=== PATIENT | female | born 1965 | race Caucasian/White ===

== ENCOUNTER → 2016-10-02 | Outpatient (CLI) | payer MEDICARE, BC ==
[2016-10-02 17:42] LABS: CH 28.6; CHCM 31.9; HCT 40.6 % (34.0-46.0); HDW 2.77; HGB 12.8 gm/dL (11.4-16.0); MCH 28.5 pg (25.0-35.0); MCHC 31.6 g/dL (31.0-37.0); MCV 90.2 fL (80.0-100.0); Mean Platelet Volume 6.5; RDW 12.8 % (11.5-15.5); WBC 7.3 k/uL (3.8-10.6)
[2016-10-02 17:51] LABS: ALT 35 U/L (9-52); AST 28 U/L (14-36); Alkaline Phosphatase 108 U/L (38-126); Anion Gap 13 mmol/L; Blood Urea Nitrogen 11 mg/dL (7-17); Calcium 9.9 mg/dL (8.4-10.2); Carbon Dioxide 30 mmol/L (22-30); Chloride 100 mmol/L (98-107); Glucose 89 mg/dL (74-99); Non-African American GFR(MDRD) >60 (>60 ml/min/1.73 sqM); Potassium 4.4 mmol/L (3.5-5.1); Sodium 143 mmol/L (137-145); Total Bilirubin 0.4 mg/dL (0.2-1.3); Total Protein 7.6 g/dL (6.3-8.2)
== END | disposition home or self-care (01) ==
LOC: LABWHC1 17:03
PROVIDERS: ATTEND Psychiatry & Neurology Neurology
DX: T42.6X5A Adverse effect of other antiepileptic and sedative-hypnotic drugs, initial encounter (principal)
CPT/HCPCS: 36415; 80053; 85027

== ENCOUNTER → 2017-09-02 | Outpatient (CLI) | payer MEDICARE, BC ==
--- NOTE | 2017-09-06 09:59 | MM ---
Reason for exam: screening (asymptomatic). Last mammogram was performed 1 year and 1 month ago. History: Patient is postmenopausal. Family history of breast cancer in cousin. Cyst aspiration of the right breast, 2013. Physical Findings: A clinical breast exam by your physician is recommended on an annual basis and results should be correlated with mammographic findings. MG 3D Screening Mammo W/Cad Bilateral CC and MLO view(s) were taken. Prior study comparison: August 03, 2016, bilateral MG 3d screening mammo w/cad. July 31, 2015, bilateral MG screening mammo w CAD. The breast tissue is heterogeneously dense. This may lower the sensitivity of mammography. Focal asymmetry right medial CC. Stable nodular right MLO view, probable, present previously. No significant changes when compared with prior studies. ASSESSMENT: Benign, BI-RAD 2 RECOMMENDATION: Routine screening mammogram of both breasts in 1 year.
== END | disposition home or self-care (01) ==
LOC: RADMAMWWP 14:49
PROVIDERS: ATTEND Family Medicine
DX: Z12.31 Encounter for screening mammogram for malignant neoplasm of breast (principal)
CPT/HCPCS: 77063; G0202

== ENCOUNTER → 2017-10-07 | Outpatient (CLI) | payer MEDICARE, BC ==
[2017-10-07 15:54] LABS: HCT 38.9 % (34.0-46.0); HGB 12.3 gm/dL (11.4-16.0); MCH 28.1 pg (25.0-35.0); MCHC 31.7 g/dL (31.0-37.0); MCV 88.6 fL (80.0-100.0); Mean Platelet Volume 7.5; Platelet Count 230 k/uL (150-450); RBC 4.39 m/uL (3.80-5.40); WBC 6.7 k/uL (3.8-10.6)
[2017-10-07 16:05] LABS: ALT 40 U/L (9-52); AST 50 U/L (14-36); Albumin 4.4 g/dL (3.5-5.0); Alkaline Phosphatase 93 U/L (38-126); Anion Gap 12 mmol/L; Blood Urea Nitrogen 13 mg/dL (7-17); Calcium 10.2 mg/dL (8.4-10.2); Carbon Dioxide 29 mmol/L (22-30); Chloride 103 mmol/L (98-107); Glucose 121 mg/dL (74-99); Potassium 4.2 mmol/L (3.5-5.1); Sodium 144 mmol/L (137-145); Total Bilirubin 0.4 mg/dL (0.2-1.3); Total Protein 7.5 g/dL (6.3-8.2)
[2017-10-07 16:18] LABS: T4, Free (Free Thyroxine) 0.97 ng/dL (0.78-2.19)
== END | disposition home or self-care (01) ==
LOC: LABWHC1 14:53
PROVIDERS: ATTEND Psychiatry & Neurology Neurology
DX: T42.6X5S Adverse effect of other antiepileptic and sedative-hypnotic drugs, sequela (principal)
CPT/HCPCS: 36415; 80053; 84439; 84443; 85027

== ENCOUNTER → 2018-01-20 | Outpatient (CLI) | payer MEDICARE, BC ==
--- NOTE | 2018-01-20 09:21 | XR ---
EXAMINATION TYPE: XR chest 2V DATE OF EXAM: 01/20/2018 COMPARISON: NONE HISTORY: Chest pain TECHNIQUE: Frontal and lateral views of the chest are obtained. FINDINGS: There is no focal air space opacity, pleural effusion, or pneumothorax seen. The cardiac silhouette size is within normal limits. The osseous structures are intact. Cholecystectomy clips a re noted within the right upper quadrant. IMPRESSION: No acute cardiopulmonary process.
--- NOTE | 2018-01-20 09:35 | XR ---
EXAMINATION TYPE: XR pelvis complete DATE OF EXAM: 01/20/2018 COMPARISON: NONE HISTORY: Pelvic pain TECHNIQUE: A single AP view of the pelvis is obtained. FINDINGS: There is no acute fracture/dislocation evident in the pelvis. There is mild right and mod erate left femoral acetabular arthropathy with subchondral cysts, acetabular sclerosis and slight med ial joint space narrowing. The overlying soft tissue appears unremarkable. Solitary surgical clip is seen in the midline pelvis. Sacroiliac joints are symmetric with minimal sclerosis. IMPRESSION: 1. No acute fracture or dislocation in the pelvis or 2. 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
== END | disposition home or self-care (01) ==
LOC: RADXRMAIN 08:14
PROVIDERS: ATTEND Physician Assistant
DX: M12.852 Other specific arthropathies, not elsewhere classified, left hip (principal); M12.851 Other specific arthropathies, not elsewhere classified, right hip; R93.7 Abnormal findings on diagnostic imaging of other parts of musculoskeletal system; R07.89 Other chest pain
CPT/HCPCS: 71046

== ENCOUNTER 2018-01-23 22:12 | Emergency (ER) | payer MEDICARE, BC ==
[2018-01-23 22:40] VITALS: TEMP 98.1
[2018-01-23] MEDS ORDERED: KETOROLAC 30 MG/ML 1 ML VIAL IM STA (23:59)
--- NOTE | 2018-01-24 | ED ---
General Adult HPI - General Chief complaint: Recheck/Abnormal Lab/Rx Stated complaint: Nerve Pain L side Time Seen by Provider: 01/23/18 23:34 Source: patient Mode of arrival: ambulatory Limitations: no limitations - History of Present Illness Initial comments: 52-year-old female patient presents to the emergency department today for evaluation of left lower back pain with radiation down the left leg. Patient states that this started approximately a week ago after experiencing a fall onto her left side. Patient states that she has been in to see her primary care physician and was diagnosed with sciatica. States that they wanted her to start taking naproxen however she read the side effects and was nervous about taking the medication. Patient states that she didn't have proper for a couple of days so she was unable to call her doctor to see if she should take this or not. Patient states that the pain has been persistent and on yielding. She states that the pain starts in her left lower back and radiates down the outside of her leg. Patient states that she has had sciatica in the past and this feels similar. She denies any numbness or tingling to her lower extremities. Denies any saddle anesthesia. Denies any loss of bowel or bladder control. Patient denies any headache, neck pain, chest pain, shortness of breath, dizziness, weakness, abdominal pain, nausea, vomiting, or difficulties with bowel movements or urination. - Related Data Allergies Allergy/AdvReac Type Severity Reaction Status Date / Time No Known Allergies Allergy Verified 01/23/18 22:39 Review of Systems ROS Statement: Those systems with pertinent positive or pertinent negative responses have been documented in the HPI. ROS Other: All systems not noted in ROS Statement are negative. Past Medical History Past Medical History: Asthma, CVA/TIA, Hyperlipidemia History of Any Multi-Drug Resistant Organisms: None Reported Past Surgical History: Hysterectomy, Orthopedic Surgery Additional Past Surgical History / Comment(s): left hand/foot Past Psychological History: No Psychological Hx Reported Smoking Status: Never smoker Past Alcohol Use History: None Reported Past Drug Use History: None Reported General Exam Limitations: no limitations General appearance: alert, in no apparent distress, other (This is a pleasant, well-developed, well-nourished adult female patient in no acute distress. Vital signs upon presentation are temperature 98.1F, pulse 92, respirations 19 , blood pressure 139/84, pulse ox 99% on room air.) Eye exam: Present: normal appearance, PERRL, EOMI. Absent: scleral icterus, conjunctival injection, periorbital swelling ENT exam: Present: normal exam, normal oropharynx, mucous membranes moist Neck exam: Present: normal inspection, full ROM. Absent: tenderness, meningismus, lymphadenopathy Respiratory exam: Present: normal lung sounds bilaterally. Absent: respiratory distress, wheezes, rales, rhonchi, stridor Cardiovascular Exam: Present: regular rate, normal rhythm, normal heart sounds. Absent: systolic murmur, diastolic murmur, rubs, gallop, clicks GI/Abdominal exam: Present: soft, normal bowel sounds. Absent: distended, tenderness, guarding, rebound, rigid Extremities exam: Present: normal inspection, full ROM, normal capillary refill , other (Skin to the left lower extremities pink, warm, and dry. Cap refills less than 3 seconds. Post tibial pulses 2+.). Absent: tenderness, pedal edema , joint swelling, calf tenderness Back exam: Present: normal inspection. Absent: vertebral tenderness Neurological exam: Present: alert, oriented X3, CN II-XII intact, other ( Patient has weakness to the left upper and lower extremities related to previous CVA. ) Psychiatric exam: Present: normal affect, normal mood Skin exam: Present: warm, dry, intact, normal color. Absent: rash Course Vital Signs 01/23/18 01/23/18 22:34 23:39 Temperature 98.1 F Pulse Rate 92 88 Respiratory 19 18 Rate Blood Pressure 139/84 154/94 O2 Sat by Pulse 99 98 Oximetry Medical Decision Making - Medical Decision Making 52-year-old female patient presented to the emergency department today for evaluation of left lower back pain with radiation down the left leg. Patient symptoms are consistent with sciatica, she has had this before. Neurologic exam is intact. We will administer an injection of Toradol here in the department. She is instructed to call her primary care physician to discuss use of naproxen tomorrow. Return parameters discussed in detail. She verbalizes understanding and agrees with this plan. Disposition Clinical Impression: Sciatica Disposition: HOME SELF-CARE Condition: Good Instructions: Sciatica (ED) Additional Instructions: Apply warm compresses to the left lower back. Call your primary care physician in the morning to discuss medications. Return here immediately for any new, worsening, or concerning symptoms. Is patient prescribed a controlled substance at d/c from ED?: No Referrals: Alfonzo Jarrett DO [Primary Care Provider] - 1-2 days Time of Disposition: 00:00
[2018-01-24 00:03] VITALS: BP 154/94; PULSE 88; RESP 18
== END 2018-01-24 00:13 | disposition home or self-care (01) ==
LOC: EC 22:12
DX: M54.42 Lumbago with sciatica, left side (principal); Z86.73 Personal history of transient ischemic attack (TIA), and cerebral infarction without residual deficits
CPT/HCPCS: 99283; 96372; J1885

== ENCOUNTER 2018-03-18 17:02 | Emergency (ER) | payer MEDICARE, BC ==
[2018-03-18 17:26] VITALS: BP 133/72; PULSE 109; RESP 18; TEMP 98.2
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
--- NOTE | 2018-03-18 18:08 | XR ---
EXAMINATION TYPE: XR foot complete LT DATE OF EXAM: 03/18/2018 COMPARISON: NONE HISTORY: Pain in the little toe TECHNIQUE: 3 views FINDINGS: Metatarsals appear intact. There is osteopenia. I see no fracture nor dislocation. There is hallux valgus. IMPRESSION: Hallux valgus. No fracture seen. Little toe appears intact.
== END 2018-03-18 18:50 | disposition home or self-care (01) ==
LOC: EC 17:02
DX: M20.12 Hallux valgus (acquired), left foot (principal); J45.909 Unspecified asthma, uncomplicated; E78.5 Hyperlipidemia, unspecified; Z86.73 Personal history of transient ischemic attack (TIA), and cerebral infarction without residual deficits; Z79.82 Long term (current) use of aspirin; Z79.51 Long term (current) use of inhaled steroids; Z79.899 Other long term (current) drug therapy
CPT/HCPCS: 99283

== ENCOUNTER 2018-09-11 14:07 | Emergency (ER) | payer MEDICARE, BC ==
[2018-09-11 14:40] VITALS: RESP 18; TEMP 98
--- NOTE | 2018-09-11 15:06 | ED ---
General Adult HPI - General Chief complaint: ENT Stated complaint: Ear pain Source: patient, RN notes reviewed, old records reviewed Mode of arrival: ambulatory Limitations: no limitations - History of Present Illness Initial comments: 53-year-old female patient with past no history of CVA presents to ED for tinnitus of approximately 1 week. Patient has had tinnitus before in the past in both ears. Previously the tinnitus resolved without intervention. Patient currently complains of tinnitus in her left ear. Patient has not taken anything for the symptoms. Patient denies symptoms including recent falls, head trauma, headache, change in vision. Patient would also like to evaluated. She believes she a developing a stye in her right eye. Patient denies other complaints. Patient denies chest pain, shortness breath, abdominal pain, nausea vomiting diarrhea, fever or chills. Systemic: Pt denies fatigue, myalgia, fever/chills, rash. Pt denies weakness, night sweats, weight loss. Neuro: Pt denies headache, visual disturbances, syncope or pre-syncope. HEENT: Pt denies ocular discharge or irritation, rhinorrhea, pharyngitis or notable lymphadenopathy. Cardiopulmonary: Pt denies chest pain, SOB, heart palpitations, dyspnea on exertion. Abdominal/GI: Pt denies abdominal pain, n/v/d. : Pt denies dysuria, burning w/ urination, frequency/urgency. Denies new onset urinary or bowel incontinence. MSK: Pt denies myalgia, loss of strength or function in extremities. Neuro: Pt denies new onset weakness, paresthesias. - Related Data Home Medications Medication Instructions Recorded Confirmed Albuterol Nebulized [Ventolin 2.5 mg INHALATION RT-QID PRN 03/18/18 03/18/18 Nebulized] Aspirin [Children's Aspirin] 81 mg PO QAM 03/18/18 03/18/18 Budesonide [Pulmicort] 0.5 mg INHALATION RT-BID 03/18/18 03/18/18 Cholecalciferol (Vitamin D3) 2,000 unit PO QAM 03/18/18 03/18/18 [Vitamin D3] Cyclobenzaprine [Flexeril] 10 mg PO HS 03/18/18 03/18/18 Dantrolene [Dantrium] 75 mg PO TID 03/18/18 03/18/18 LORazepam [Ativan] 0.25 mg PO DAILY PRN 03/18/18 03/18/18 Sertraline [Zoloft] 25 mg PO QAM 03/18/18 03/18/18 Sertraline [Zoloft] 50 mg PO HS 03/18/18 03/18/18 Simvastatin [Zocor] 20 mg PO HS 03/18/18 03/18/18 Zafirlukast [Accolate] 20 mg PO BID 03/18/18 03/18/18 lamoTRIgine [LaMICtal] 25 mg PO QAM 03/18/18 03/18/18 Allergies Allergy/AdvReac Type Severity Reaction Status Date / Time No Known Allergies Allergy Verified 03/18/18 17:34 Review of Systems ROS Statement: Those systems with pertinent positive or pertinent negative responses have been documented in the HPI. ROS Other: All systems not noted in ROS Statement are negative. Past Medical History Past Medical History: Asthma, CVA/TIA, Hyperlipidemia, Hypertension, Seizure Disorder History of Any Multi-Drug Resistant Organisms: None Reported Past Surgical History: Hysterectomy, Orthopedic Surgery Additional Past Surgical History / Comment(s): left hand/foot Past Psychological History: No Psychological Hx Reported Smoking Status: Never smoker Past Alcohol Use History: None Reported Past Drug Use History: None Reported General Exam - General Exam Comments Initial Comments: Constitutional: NAD, AOX3, Pt has pleasant affect. HEENT: NC/AT, trachea midline, neck supple, no lymphadenopathy. Posterior pharynx non erythematous, without exudates. External ears appear normal, without discharge. Left TM pallor grade, right TM Noriega, no bulging, erythema or perforation. Mucous membranes moist. Eyes PERRLA, EOM intact, no nystagmus. There is no scleral icterus. Eyes examined, no hordeolum or chalazion. No injection. No pallor noted. Cardiopulmonary: RRR, no murmurs, rubs or gallops, no JVD noted. Lungs CTAB in anterior and posterior solorio. No peripheral edema. Abdominal exam: Abdomen soft and non-distended. Abdomen non-tender to palpation in all 4 quadrants. Bowel sounds active in LLQ. No hepatosplenomegaly. No ecchymosis Neuro: CN II-XII intact. No nuchal rigidity. No focal deficit, no facial droop. MSK: No posterior calf tenderness bilaterally, homans sign negative bilaterally. Posterior tibialis and radial pulse +2 bilaterally. Sensation intact in upper and lower extremities. Full active ROM in upper and lower extremities, 5/5 stregnth. Limitations: no limitations Course Vital Signs 09/11/18 14:38 Temperature 98 F Pulse Rate 99 Respiratory 18 Rate Blood Pressure 125/70 O2 Sat by Pulse 99 Oximetry Medical Decision Making - Medical Decision Making 53-year-old female patient with past no history of CVA presents to ED for tinnitus of approximately 1 week. Patient has had tinnitus before in the past in both ears. Previously the tinnitus resolved without intervention. Patient currently complains of tinnitus in her left ear. Patient has not taken anything for the symptoms. Patient denies symptoms including recent falls, head trauma, headache, change in vision. Physical exam did not display any acute pathology. Laboratory investigations were conducted, CBC, CMP were noncompressive. Findings discussed with the patient. Salicylate level less than 1.0. Patient given 1 L of fluid. Patient's tinnitus resolved in ED. Patient to follow up with primary care physician in one to days. Patient to return to ED if any new signs symptoms develop. Case discussed with Dr. Peña. - Lab Data Result diagrams: 09/11/18 16:02 09/11/18 16:02 Lab Results 09/11/18 09/11/18 Range/Units 16:02 16:02 WBC 7.4 (3.8-10.6) k/uL RBC 4.83 (3.80-5.40) m/uL Hgb 13.0 (11.4-16.0) gm/dL Hct 41.4 (34.0-46.0) % MCV 85.7 (80.0-100.0) fL MCH 26.9 (25.0-35.0) pg MCHC 31.4 (31.0-37.0) g/dL RDW 13.0 (11.5-15.5) % Plt Count 314 (150-450) k/uL Neutrophils % 71 % Lymphocytes % 20 % Monocytes % 3 % Eosinophils % 3 % Basophils % 1 % Neutrophils # 5.2 (1.3-7.7) k/uL Lymphocytes # 1.5 (1.0-4.8) k/uL Monocytes # 0.2 (0-1.0) k/uL Eosinophils # 0.3 (0-0.7) k/uL Basophils # 0.1 (0-0.2) k/uL Sodium 142 (137-145) mmol/L Potassium 3.3 L (3.5-5.1) mmol/L Chloride 97 L (98-107) mmol/L Carbon Dioxide 31 H (22-30) mmol/L Anion Gap 14 mmol/L BUN 14 (7-17) mg/dL Creatinine 0.74 (0.52-1.04) mg/dL Est GFR (CKD-EPI)AfAm >90 (>60 ml/min/1.73 sqM) Est GFR (CKD-EPI)NonAf >90 (>60 ml/min/1.73 sqM) Glucose 137 H (74-99) mg/dL Calcium 10.0 (8.4-10.2) mg/dL Magnesium 2.2 (1.6-2.3) mg/dL Total Bilirubin 0.2 (0.2-1.3) mg/dL AST 29 (14-36) U/L ALT 15 (9-52) U/L Alkaline Phosphatase 125 (38-126) U/L Total Protein 8.7 H (6.3-8.2) g/dL Albumin 4.7 (3.5-5.0) g/dL Salicylates <1.0 mg/dL Disposition Clinical Impression: Tinnitus Disposition: HOME SELF-CARE Condition: Good Instructions: Tinnitus (ED) Additional Instructions: Patient to adhere to previously discussed treatment plan and will take medication(s) as directed. Patient to follow up with PCP in 1-2 days. Patient to return to ED if symptoms do not improve. Is patient prescribed a controlled substance at d/c from ED?: No Referrals: Alfonzo Jarrett DO [Primary Care Provider] - 1-2 days Time of Disposition: 17:26
[2018-09-11] MEDS ORDERED: SODIUM CHLORIDE 0.9% 1,000 ML IV STA (15:36)
[2018-09-11 16:16] LABS: Basophils # (A) 0.1 k/uL (0-0.2); Basophils % (A) 1 %; Eosinophils # (A) 0.3 k/uL (0-0.7); Eosinophils % (A) 3 %; HCT 41.4 % (34.0-46.0); Lymphocytes # (A) 1.5 k/uL (1.0-4.8); Lymphocytes % (A) 20 %; MCH 26.9 pg (25.0-35.0); MCHC 31.4 g/dL (31.0-37.0); MCV 85.7 fL (80.0-100.0); Mean Platelet Volume 6.6; Monocytes # (A) 0.2 k/uL (0-1.0); Monocytes % (A) 3 %; Neutrophils # (A) 5.2 k/uL (1.3-7.7); Neutrophils % (A) 71 %; Platelet Count 314 k/uL (150-450); RBC 4.83 m/uL (3.80-5.40); WBC 7.4 k/uL (3.8-10.6)
[2018-09-11 16:28] LABS: ALT 15 U/L (9-52); AST 29 U/L (14-36); Albumin 4.7 g/dL (3.5-5.0); Alkaline Phosphatase 125 U/L (38-126); Anion Gap 14 mmol/L; Blood Urea Nitrogen 14 mg/dL (7-17); Carbon Dioxide 31 mmol/L (22-30); Chloride 97 mmol/L (98-107); Glucose 137 mg/dL (74-99); Magnesium 2.2 mg/dL (1.6-2.3); Potassium 3.3 mmol/L (3.5-5.1); Salicylate <1.0 mg/dL; Sodium 142 mmol/L (137-145); Total Bilirubin 0.2 mg/dL (0.2-1.3); Total Protein 8.7 g/dL (6.3-8.2)
[2018-09-11 17:34] VITALS: BP 120/79; PULSE 88
== END 2018-09-11 17:33 | disposition home or self-care (01) ==
LOC: EC 14:07
DX: H93.12 Tinnitus, left ear (principal); J45.909 Unspecified asthma, uncomplicated; E78.5 Hyperlipidemia, unspecified; I10 Essential (primary) hypertension; G40.909 Epilepsy, unspecified, not intractable, without status epilepticus; Z79.51 Long term (current) use of inhaled steroids; Z79.82 Long term (current) use of aspirin; Z79.899 Other long term (current) drug therapy
CPT/HCPCS: 36415; 80053; 83520; 83735; 85025; 96360; 99283

== ENCOUNTER → 2018-10-13 | Outpatient (CLI) | payer MEDICARE, BC ==
--- NOTE | 2018-10-16 14:23 | MM ---
Reason for exam: screening (asymptomatic). Last mammogram was performed 1 year and 1 month ago. History: Patient is postmenopausal. Family history of breast cancer in cousin. Cyst aspiration of the right breast, 2013. MG 3D Screening Mammo W/Cad Bilateral CC and MLO view(s) were taken. Prior study comparison: September 02, 2017, bilateral MG 3d screening mammo w/cad. August 03, 2016, bilateral MG 3d screening mammo w/cad. The breast tissue is heterogeneously dense. This may lower the sensitivity of mammography. No significant changes when compared with prior studies. ASSESSMENT: Benign, BI-RAD 2 RECOMMENDATION: Routine screening mammogram of both breasts in 1 year.
== END | disposition home or self-care (01) ==
LOC: RADMAMWWP 14:50
PROVIDERS: ATTEND Family Medicine
DX: Z12.31 Encounter for screening mammogram for malignant neoplasm of breast (principal)
CPT/HCPCS: 77063; 77067

== ENCOUNTER → 2018-10-20 | Outpatient (CLI) | payer MEDICARE, BC ==
[2018-10-20 15:44] LABS: Blood Urea Nitrogen 16 mg/dL (7-17)
--- NOTE | 2018-10-20 20:22 | MR ---
EXAMINATION TYPE: MR brain and iac wo/w con DATE OF EXAM: 10/20/2018 COMPARISON: None HISTORY: Tinnitus left ear CONTRAST: Performed utilizing 7.5 mL intravenous Gadavist gadolinium contrast. TECHNIQUE: Multiplanar, multiecho imaging on a 3.0 Jennifer magnet is performed through the brain. Atte ntion is paid to the internal auditory canals with thin section imaging. Postcontrast imaging is per formed through the internal auditory canals. FINDINGS:Craniovertebral junction is normal. The pituitary is normal. Diffusion-weighted imaging is performed. No suspicious hyperintensity is present to suggest an acute intracranial infarct or acute ischemic area. There appears to be some abnormal signal within the ri ght basal ganglion suggestive for an old lacunar infarct. Ex vacuo effect on the right lateral ventri zachariah is evident. Signal within the brain has scattered areas of hyperintensity which are non-specific but could be rel ated to microvascular ischemic changes. The largest of these appears to lie within the left perivent ricular white matter and measures 0.8 cm in diameter. Optic chiasm is normal. There are normal vascular flow voids within the visualized intracranial cereb ral vasculature. The right A1 segment may be hypoplastic. Thin section imaging is performed through the internal auditory canals and cerebellar pontine angles. No cerebellar pontine angle masses are evident. The internal auditory canals appear normal without expansion or erosion. Postcontrast imaging was performed. No suspicious enhancement is evident within the internal audito ry canals or the included portions of the brain. Mastoid air cells are clear. Portions of the paranasal sinuses visualized are normal. IMPRESSIONS: 1. Normal internal auditory canals. 2. 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 3. Mild periventricular white matter changes.
== END ==
LOC: RADMRIMAIN 15:00
PROVIDERS: ATTEND Family Medicine
DX: H93.12 Tinnitus, left ear (principal); R90.89 Other abnormal findings on diagnostic imaging of central nervous system
CPT/HCPCS: 82565; 84520; 70553; 36415; A9585

== ENCOUNTER 2019-02-16 15:16 | Emergency (ER) | payer MEDICARE, BC ==
[2019-02-16 15:38] VITALS: RESP 18; TEMP 99.2
--- NOTE | 2019-02-16 16:40 | ED ---
General Adult HPI - General Chief complaint: Dizziness Stated complaint: Dizziness, facial numbness Time Seen by Provider: 02/16/19 16:01 Source: patient Mode of arrival: wheelchair Limitations: no limitations - History of Present Illness Initial comments: Dictation was produced using [employer] dictation software. please excuse any gramma tical, word or spelling errors. Chief Complaint: Patient is a 54-year-old female past medical history asthma, TIA, dyslipidemia presents with dizziness. History of Present Illness: Patient is a 54-year-old female she presents with dizziness. She states she has patient has a history of stress-induced dizziness. States that the last time she had this was several months ago. Patient able to ambulate without any difficulties. No neuro deficits to the arms or legs. Patient has slight mental delay. She resides at an assisted living facility. She called her primary care's physician's office and spoke [employer] nurse and campus receptionist directed her to the emergency department. She has no other complaints at this time. Denies any sensation of the room spinning. Patient has seen landing gear mechanic. She currently uses eardrops for years for unspecified reason. The ROS documented in this emergency department record has been reviewed and confirmed by me. Those systems with pertinent positive or negative responses have been documented in the HPI. All other systems are other negative and/or noncontributory. PHYSICAL EXAM: General Impression: Alert and oriented x3, not in acute distress HEENT: Normocephalic atraumatic, extra-ocular movements intact, pupils equal and reactive to light bilaterally, mucous membranes moist, impacted cerumen to the right external auditory canal. Cardiovascular: Heart regular rate and rhythm, S1&S2 audible, no murmurs, rubs or gallops Chest: Lungs clear to auscultation bilaterally, no rhonchi, no wheeze, no rales Abdomen: Bowel sounds present, abdomen soft, non-tender, non-distended, no organomegaly Musculoskeletal: Pulses present and equal in all extremities, no peripheral edema Motor: no focal deficits noted Neurological: CN II-XII grossly intact, no focal motor or sensory deficits noted, no gait ataxia Skin: Intact with no visualized rashes Psych: Normal affect and mood ED course: 54-year-old female presents with clinical presentation consistent with dizziness secondary to impacted ear cerumen. Vital signs upon arrival shows heart rate of 104, rest of vital signs within acceptable limits. Patient has benign physical examination otherwise. Patient is clinically well- appearing. Right ear was irrigated. With removal of wax. Reevaluation of external auditory canal shows some residual wax however static membrane appears well. Patient reports improvement of symptoms. Patient clear for discharge. Told not to excessively use Q-tips because of pushes earwax into the deeper ear canal. Patient told to follow up with your nose and throat specialist. She is told to take [id number] earwax drops. Patient understandable agreeable to disposition.. Patient clear for discharge. EKG interpretation: Ventricular rate 53, normal sinus rhythm, OH interval 132, care is 94, QTC 477. No OH prolongation, no QTC prolongation, no ST or T-wave changes noted. . Overall, this EKG is unremarkable - Related Data Home Medications Medication Instructions Recorded Confirmed Albuterol Nebulized [Ventolin 2.5 mg INHALATION RT-QID PRN 03/18/18 02/16/19 Nebulized] Aspirin [Children's Aspirin] 81 mg PO QAM 03/18/18 02/16/19 Budesonide [Pulmicort] 0.5 mg INHALATION RT-BID 03/18/18 02/16/19 Cholecalciferol (Vitamin D3) 2,000 unit PO QAM 03/18/18 02/16/19 [Vitamin D3] Cyclobenzaprine [Flexeril] 10 mg PO HS 03/18/18 02/16/19 Dantrolene [Dantrium] 75 mg PO TID 03/18/18 02/16/19 LORazepam [Ativan] 0.25 mg PO DAILY PRN 03/18/18 02/16/19 Sertraline [Zoloft] 25 mg PO QAM 03/18/18 02/16/19 Sertraline [Zoloft] 50 mg PO HS 03/18/18 02/16/19 Simvastatin [Zocor] 20 mg PO HS 03/18/18 02/16/19 Zafirlukast [Accolate] 20 mg PO BID 03/18/18 02/16/19 lamoTRIgine [LaMICtal] 25 mg PO QAM 03/18/18 02/16/19 Hydrochlorothiazide [Hydrodiuril] 25 mg PO DAILY 02/16/19 02/16/19 Allergies Allergy/AdvReac Type Severity Reaction Status Date / Time No Known Allergies Allergy Verified 02/16/19 16:01 Review of Systems ROS Statement: Those systems with pertinent positive or pertinent negative responses have been documented in the HPI. ROS Other: All systems not noted in ROS Statement are negative. Past Medical History Past Medical History: Asthma, CVA/TIA, Hyperlipidemia, Hypertension, Seizure Disorder History of Any Multi-Drug Resistant Organisms: None Reported Past Surgical History: Hysterectomy, Orthopedic Surgery Additional Past Surgical History / Comment(s): left hand/foot Past Psychological History: No Psychological Hx Reported Smoking Status: Never smoker Past Alcohol Use History: None Reported Past Drug Use History: None Reported General Exam Limitations: no limitations Course Vital Signs 02/16/19 02/16/19 15:34 18:10 Temperature 99.2 F Pulse Rate 104 H 99 Respiratory 18 18 Rate Blood Pressure 123/75 136/78 O2 Sat by Pulse 100 99 Oximetry Disposition Clinical Impression: Impacted cerumen, Dizziness Disposition: HOME SELF-CARE Condition: Good Instructions (If sedation given, give patient instructions): Dizziness (ED) Is patient prescribed a controlled substance at d/c from ED?: No Referrals: Alfonzo Jarrett DO [Primary Care Provider] - 1-2 days Time of Disposition: 18:26
[2019-02-16 18:11] VITALS: BP 136/78; PULSE 99
== END 2019-02-16 18:35 | disposition home or self-care (01) ==
LOC: EC 15:16
DX: H61.21 Impacted cerumen, right ear (principal); R42 Dizziness and giddiness; J45.909 Unspecified asthma, uncomplicated; E78.5 Hyperlipidemia, unspecified; I10 Essential (primary) hypertension; G40.909 Epilepsy, unspecified, not intractable, without status epilepticus; Z79.82 Long term (current) use of aspirin; Z79.899 Other long term (current) drug therapy; Z86.73 Personal history of transient ischemic attack (TIA), and cerebral infarction without residual deficits
CPT/HCPCS: 69209; 93005; 99284

== ENCOUNTER → 2019-08-29 | Outpatient (CLI) | payer MEDICARE, BC ==
[2019-08-29 18:07] LABS: Basophils % (A) 0 %; Eosinophils # (A) 0.3 k/uL (0-0.7); Eosinophils % (A) 5 %; HCT 35.1 % (34.0-46.0); HGB 11.5 gm/dL (11.4-16.0); Lymphocytes # (A) 1.6 k/uL (1.0-4.8); Lymphocytes % (A) 22 %; MCH 29.6 pg (25.0-35.0); MCHC 32.7 g/dL (31.0-37.0); MCV 90.7 fL (80.0-100.0); Mean Platelet Volume 7.6; Monocytes # (A) 0.4 k/uL (0-1.0); Monocytes % (A) 5 %; Neutrophils # (A) 4.7 k/uL (1.3-7.7); Neutrophils % (A) 66 %; Platelet Count 271 k/uL (150-450); RBC 3.87 m/uL (3.80-5.40); RDW 12.4 % (11.5-15.5); WBC 7.2 k/uL (3.8-10.6)
[2019-08-30 01:36] LABS: African American GFR (CKD) 97.6 (60.0-200.0); Albumin 4.7 g/dL (3.80-4.90); Albumin/Globulin Ratio 1.88 (1.60-3.17); Anion Gap 11.1 mmol/L (4.00-12.00); BUN/Creat Ratio 31.25 Ratio (12.00-20.00); Calcium 9.7 mg/dL (8.7-10.3); Carbon Dioxide 25.9 mmol/L (21.6-31.8); Globulin 2.5 g/dL (1.6-3.3); Non-African American GFR(CKD) 84.2 (60.0-200.0); Potassium 4.6 mmol/L (3.5-5.5); Total Bilirubin 0.2 mg/dL (0.3-1.2); Total Protein 7.2 g/dL (6.2-8.2)
== END | disposition home or self-care (01) ==
LOC: LABWHC1 16:59
PROVIDERS: ATTEND Psychiatry & Neurology Neurology
DX: G40.109 Localization-related (focal) (partial) symptomatic epilepsy and epileptic syndromes with simple partial seizures, not intractable, without status epilepticus (principal); Z51.81 Encounter for therapeutic drug level monitoring
CPT/HCPCS: 36415; 80053; 85025

== ENCOUNTER 2019-09-13 20:50 | Emergency (ER) | payer MEDICARE, BC ==
[2019-09-13 21:07] VITALS: BP 162/97; PULSE 102; RESP 20; TEMP 97.8
--- NOTE | 2019-09-13 21:14 | ED ---
Upper Extremity HPI - General Chief Complaint: Extremity Injury, Upper Stated Complaint: Fall Time Seen by Provider: 09/13/19 21:10 Source: patient, family Mode of arrival: ambulatory Limitations: no limitations - History of Present Illness Initial Comments: Gogo is a 54-year-old female with past medical history of CVA in the past resulting in some left-sided weakness and walker dependence. Patient presents the ER today for reevaluation of right wrist pain after a fall yesterday. Patient states that yesterday she was attempting to get out of a cab when she fell on outstretched hand. She was seen and evaluated at an outside hospital where x-rays were obtained and she was advised that she had a sprain with no fracture. She was given an Danial wrap and discharged home. Patient reports that due to the disability in her left hand from previous stroke she was unable to adjust her Danial wrap and she noted today that her fingers became swollen and blue she also reports increasing pain so she returned the ER for reevaluation. Patient denies any new injuries today. - Related Data Home Medications Medication Instructions Recorded Confirmed Albuterol Nebulized [Ventolin 2.5 mg INHALATION RT-QID PRN 03/18/18 02/16/19 Nebulized] Aspirin [Children's Aspirin] 81 mg PO QAM 03/18/18 02/16/19 Budesonide [Pulmicort] 0.5 mg INHALATION RT-BID 03/18/18 02/16/19 Cholecalciferol (Vitamin D3) 2,000 unit PO QAM 03/18/18 02/16/19 [Vitamin D3] Cyclobenzaprine [Flexeril] 10 mg PO HS 03/18/18 02/16/19 Dantrolene [Dantrium] 75 mg PO TID 03/18/18 02/16/19 LORazepam [Ativan] 0.25 mg PO DAILY PRN 03/18/18 02/16/19 Sertraline [Zoloft] 25 mg PO QAM 03/18/18 02/16/19 Sertraline [Zoloft] 50 mg PO HS 03/18/18 02/16/19 Simvastatin [Zocor] 20 mg PO HS 03/18/18 02/16/19 Zafirlukast [Accolate] 20 mg PO BID 03/18/18 02/16/19 lamoTRIgine [LaMICtal] 25 mg PO QAM 03/18/18 02/16/19 Hydrochlorothiazide [Hydrodiuril] 25 mg PO DAILY 02/16/19 02/16/19 Allergies Allergy/AdvReac Type Severity Reaction Status Date / Time No Known Allergies Allergy Verified 09/13/19 21:07 Review of Systems ROS Statement: Those systems with pertinent positive or pertinent negative responses have been documented in the HPI. ROS Other: All systems not noted in ROS Statement are negative. Past Medical History Past Medical History: Asthma, CVA/TIA, Hyperlipidemia, Hypertension, Seizure Disorder History of Any Multi-Drug Resistant Organisms: None Reported Past Surgical History: Hysterectomy, Orthopedic Surgery Additional Past Surgical History / Comment(s): left hand/foot Past Psychological History: No Psychological Hx Reported Smoking Status: Never smoker Past Alcohol Use History: None Reported Past Drug Use History: None Reported General Exam - General Exam Comments Initial Comments: Physical Exam GENERAL: Patient is well-developed and well-nourished. Patient is nontoxic and well-hydrated and is in no distress. HENT: Normocephalic, Atraumatic. EYES: PERRL, EOMI PULMONARY: Unlabored respirations. CARDIOVASCULAR: RRR Warm and well perfused extremities ABDOMEN: Non-distended SKIN: No rashes or bruising : Deferred NEUROLOGIC: Alert and oriented Normal speech Normal gait MUSCULOSKELETAL: Swelling of the right hand, bruising noted at the base of the fingers and thumb Snuffbox tenderness noted PSYCHIATRIC: No SI/HI Limitations: no limitations Course Vital Signs 09/13/19 21:03 Temperature 97.8 F Pulse Rate 102 H Respiratory 20 Rate Blood Pressure 162/97 O2 Sat by Pulse 100 Oximetry Procedures - Orthopedic Splinting/Casting Injury #1 Side: right Upper Extremity Injury Location: wrist Upper Extremity Immobilizer: thumb spica Medical Decision Making - Medical Decision Making Patient was seen and evaluated history is obtained from the patient next and physical exam revealed a swollen hand with bruising, the very tight Danial wrap was removed and repeat x-rays were obtained which again revealed no acute fracture. Given patient's symptoms and disability the patient was placed in a thumb spica splint to allow her to support the injury while still using her walker. Patient has home nursing who visits on Wednesday and . Patient states they will be able to change her splint help keep her hand pain. Patient is to follow up with her primary care provider who she is shannan scheduled to see. Eyes patient that she has persistent pain after 2 weeks to request her primary care provider repeat imaging and referral to orthopedics. Disposition Clinical Impression: Wrist pain, right Disposition: HOME SELF-CARE Condition: Stable Instructions (If sedation given, give patient instructions): Hand Sprain (ED) Is patient prescribed a controlled substance at d/c from ED?: No Referrals: Alfonzo Jarrett DO [Primary Care Provider] - 1-2 days
--- NOTE | 2019-09-13 21:42 | XR ---
EXAMINATION TYPE: XR wrist complete RT DATE OF EXAM: 09/13/2019 COMPARISON: NONE HISTORY: Wrist pain. Fell out of a car TECHNIQUE: 4 views FINDINGS: Carpal bones are intact. Joint spaces are fairly normal. I see no fracture nor dislocation. Scaphoid is intact. Metacarpals are intact. IMPRESSION: Negative right wrist exam.
== END 2019-09-13 22:10 | disposition home or self-care (01) ==
LOC: EC 20:50
DX: M25.531 Pain in right wrist (principal); S60.221A Contusion of right hand, initial encounter; I69.354 Hemiplegia and hemiparesis following cerebral infarction affecting left non-dominant side; J45.909 Unspecified asthma, uncomplicated; E78.5 Hyperlipidemia, unspecified; I10 Essential (primary) hypertension; G40.909 Epilepsy, unspecified, not intractable, without status epilepticus; Z79.51 Long term (current) use of inhaled steroids; Z79.82 Long term (current) use of aspirin; Z79.899 Other long term (current) drug therapy; V48.9XXA Unspecified car occupant injured in noncollision transport accident in traffic accident, initial encounter; Y93.89 Activity, other specified
CPT/HCPCS: 29125; 99283

== ENCOUNTER → 2020-10-04 | Outpatient (CLI) | payer MEDICARE, BC ==
--- NOTE | 2020-10-08 10:35 | MM ---
Reason for exam: screening (asymptomatic). Last mammogram was performed 2 years ago. History: Patient is postmenopausal. Family history of breast cancer in cousin. Cyst aspiration of the right breast, 2013. Physical Findings: A clinical breast exam by your physician is recommended on an annual basis and results should be correlated with mammographic findings. MG 3D Screening Mammo W/Cad Bilateral CC and MLO view(s) were taken. XCCL view(s) were taken of the right breast. Prior study comparison: October 13, 2018, bilateral MG 3d screening mammo w/cad. September 02, 2017, bilateral MG 3d screening mammo w/cad. The breast tissue is heterogeneously dense. This may lower the sensitivity of mammography. No significant changes when compared with prior studies. ASSESSMENT: Benign, BI-RAD 2 RECOMMENDATION: Routine screening mammogram of both breasts in 1 year.
== END | disposition home or self-care (01) ==
LOC: RADMAMWWP 13:06
PROVIDERS: ATTEND Family Medicine
DX: Z12.31 Encounter for screening mammogram for malignant neoplasm of breast (principal)
CPT/HCPCS: 77063; 77067

== ENCOUNTER → 2020-10-10 | Outpatient (CLI) | payer MEDICARE, BC | END | disposition home or self-care (01) | LOC: LABWHC1 08:49 | PROVIDERS: ATTEND Family Medicine | DX: Z20.822 Contact with and (suspected) exposure to COVID-19 (principal) | CPT/HCPCS: U0003; C9803; U0005 ==

== ENCOUNTER → 2021-08-27 | Outpatient (CLI) | payer MEDICARE, BC ==
--- NOTE | 2021-08-28 06:51 | XR ---
EXAMINATION TYPE: XR shoulder complete LT DATE OF EXAM: 08/27/2021 CLINICAL HISTORY: pain COMPARISON: NONE TECHNIQUE: Three views of the left shoulder are obtained. FINDINGS: There is no acute fracture/dislocation evident. The acromioclavicular and glenohumeral toñito int spaces appear moderately narrowed. The visualized ribs are intact and unremarkable. IMPRESSION: 1. There is no acute fracture or dislocation. ICD 10 NO FRACTURE, INITIAL EVALUATION
== END | disposition home or self-care (01) ==
LOC: RADXRMAIN 16:16
PROVIDERS: ATTEND Family Medicine
DX: M25.512 Pain in left shoulder (principal)

== ENCOUNTER → 2022-02-23 | Outpatient (CLI) | payer MEDICARE, BC | END | disposition home or self-care (01) | LOC: LABWHC1 16:45 | PROVIDERS: ATTEND Otolaryngology | DX: J30.89 Other allergic rhinitis (principal) | CPT/HCPCS: 36415 ==

== ENCOUNTER → 2022-12-15 | Outpatient (CLI) | payer MEDICARE, BC ==
--- NOTE | 2022-12-16 12:13 | CT ---
EXAMINATION TYPE: CT abdomen pelvis wo con CT DLP: 869 mGycm, Automated exposure control for dose reduction was used. DATE OF EXAM: 12/15/2022 5:28 PM COMPARISON: None CLINICAL INDICATION:Female, 57 years old with history of R10.33 PERIUMBILICAL PAIN; periumbilical jake n and yeast infection in umbilical button TECHNIQUE: Axial CT of the abdomen and pelvis. Sagittal and coronal reformats were created on a [id number] workstation. Contrast used: None Oral contrast used: with Oral Contrast FINDINGS: LOWER CHEST: Unremarkable ABDOMEN LIVER: Unremarkable GALLBLADDER AND BILE DUCTS: The gallbladder is surgically absent. PANCREAS: Unremarkable. SPLEEN: Unremarkable. ADRENAL GLANDS: Unremarkable. KIDNEYS AND URETERS: No evidence of hydronephrosis or renal calculus. The ureters are unremarkable. PELVIS BLADDER: Unremarkable REPRODUCTIVE: Unremarkable. ABDOMEN & PELVIS STOMACH AND BOWEL: No evidence of bowel obstruction. The appendix is not definitively visualized. PERITONEUM/RETROPERITONEUM: No evidence of pneumoperitoneum or free fluid. VASCULATURE: Mild atherosclerotic calcifications are present throughout the abdominal aorta and its b ranches. No evidence of aortic aneurysm. MUSCULOSKELETAL: No acute osseous abnormalities. Mild disc degeneration changes are present throughou t the thoracolumbar spine. LYMPH NODES: No gross evidence for lymphadenopathy. SOFT TISSUE/ABDOMINAL WALL: Fat-containing umbilical hernia. Ventral wall hernia just below the umbil icus containing fat. No organizing fluid collections in the subcutaneous tissue around the umbilicus or evidence for inflammation. IMPRESSION: No acute abdominal process. No evidence for abdominal wall hernia. The appendix is not visualized. Small fat-containing umbilical and ventral wall hernias without evidence for organizing fluid collect ion.
== END | disposition home or self-care (01) ==
LOC: RADCTMAIN 15:06
PROVIDERS: ATTEND Family Medicine
DX: K42.9 Umbilical hernia without obstruction or gangrene (principal); K44.9 Diaphragmatic hernia without obstruction or gangrene
CPT/HCPCS: 74176

== ENCOUNTER 2022-12-19 11:11 | Emergency (ER) | payer MEDICARE, BC ==
[2022-12-19] MEDS ORDERED: IBUPROFEN 600 MG TAB PO STA (11:15)
[2022-12-19] MEDS ORDERED: ACETAMINOPHEN TAB 500 MG TAB PO STA (11:15)
--- NOTE | 2022-12-19 11:21 | ED ---
General Adult HPI - General Stated complaint: Covid Time Seen by Provider: 12/19/22 11:11 Source: patient, RN notes reviewed, old records reviewed - History of Present Illness Initial comments: This a 57-year-old female who presents emergency department from an urgent care. Patient was at the urgent care because she states she started getting the chills last night and her daughter ankle which she wanted to be checked out. Khadar mateo was positive for cold at the urgent care and they sent her in because she was tachycardic. Patient had a fever for 101 at the urgent care but they did not give her any Tylenol or Motrin. Patient denies any sore throat or cough. Patient denies any difficulty breathing or chest pain. Patient denies any nausea vomiting or diarrhea. Patient states she also had some exposure to strep throat. - Related Data Home Medications Medication Instructions Recorded Confirmed Albuterol Nebulized [Ventolin 2.5 mg INHALATION RT-QID PRN 03/18/18 02/16/19 Nebulized] Aspirin [Children's Aspirin] 81 mg PO QAM 03/18/18 02/16/19 Budesonide [Pulmicort] 0.5 mg INHALATION RT-BID 03/18/18 02/16/19 Cholecalciferol (Vitamin D3) 2,000 unit PO QAM 03/18/18 02/16/19 [Vitamin D3] Cyclobenzaprine [Flexeril] 10 mg PO HS 03/18/18 02/16/19 Dantrolene [Dantrium] 75 mg PO TID 03/18/18 02/16/19 LORazepam [Ativan] 0.25 mg PO DAILY PRN 03/18/18 02/16/19 Sertraline [Zoloft] 25 mg PO QAM 03/18/18 02/16/19 Sertraline [Zoloft] 50 mg PO HS 03/18/18 02/16/19 Simvastatin [Zocor] 20 mg PO HS 03/18/18 02/16/19 Zafirlukast [Accolate] 20 mg PO BID 03/18/18 02/16/19 lamoTRIgine [LaMICtal] 25 mg PO QAM 03/18/18 02/16/19 hydroCHLOROthiazide [Hydrodiuril] 25 mg PO DAILY 02/16/19 02/16/19 Allergies Allergy/AdvReac Type Severity Reaction Status Date / Time No Known Allergies Allergy Verified 09/13/19 21:07 Review of Systems ROS Statement: Those systems with pertinent positive or pertinent negative responses have been documented in the HPI. ROS Other: All systems not noted in ROS Statement are negative. Past Medical History Past Medical History: Asthma, CVA/TIA, Hyperlipidemia, Hypertension, Seizure Disorder History of Any Multi-Drug Resistant Organisms: None Reported Past Surgical History: Hysterectomy, Orthopedic Surgery Additional Past Surgical History / Comment(s): left hand/foot Past Psychological History: No Psychological Hx Reported Past Alcohol Use History: None Reported Past Drug Use History: None Reported General Exam - General Exam Comments Initial Comments: GENERAL: Patient is well-developed and well-nourished. Patient is nontoxic and well- hydrated and is in no acute distress. ENT: Neck is soft and supple. No significant lymphadenopathy is noted. Oropharynx is clear. Moist mucous membranes. Neck has full range of motion without eliciting any pain. EYES: The sclera were anicteric and conjunctiva were pink and moist. Extraocular movements were intact and pupils were equal round and reactive to light. Eyelids were unremarkable. PULMONARY: Unlabored respirations. Good breath sounds bilaterally. No audible rales rhonchi or wheezing was noted. CARDIOVASCULAR: There is a regular rate and rhythm without any murmurs gallops or rubs. ABDOMEN: Soft and nontender with normal bowel sounds. SKIN: Skin is clear with no lesions or rashes and otherwise unremarkable. NEUROLOGIC: Patient is alert and oriented x3. Cranial nerves II through XII are grossly intact. Motor and sensory are also intact. Normal speech, volume and content. Symmetrical smile. MUSCULOSKELETAL: Normal extremities with adequate strength and full range of motion. LYMPHATICS: No significant lymphadenopathy is noted PSYCHIATRIC: Normal psychiatric evaluation. Course Vital Signs 12/19/22 12/19/22 12/19/22 11:14 12:18 12:47 Temperature 102.3 F H 100.8 F H Pulse Rate 136 H 123 H 126 H Respiratory 20 20 Rate Blood Pressure 130/90 O2 Sat by Pulse 99 96 96 Oximetry 12/19/22 12/19/22 13:16 14:00 Temperature 100.3 F H 99.8 F H Pulse Rate 118 H 113 H Respiratory 18 Rate Blood Pressure 111/62 O2 Sat by Pulse 95 Oximetry Medical Decision Making - Medical Decision Making EKG was interpreted by myself. EKG shows sinus tachycardia at 132 bpm CA interval 238 QRS is 95 QT interval 3:30 QTC is 391. Patient's EKG shows no ST segment elevation or depression. Was pt. sent in by a medical professional or institution (, [employer], HEALTHCARE INSURANCE SALES AGENT, urgent care, hospital, or jail...) When possible be specific @ -Patient was sent in from urgent care Did you speak to anyone other than the patient for history (EMS, parent, family, police, friend...)? What history was obtained from this source @ -No Did you review nursing and triage notes (agree or disagree)? Why? @ -I reviewed and agree with nursing and triage notes Were old charts reviewed (outside hosp., previous admission, EMS record, old EKG, old radiological studies, urgent care reports/EKG's, jail records)? Report findings @ -No old charts were reviewed Differential Diagnosis (chest pain, altered mental status, abdominal pain women, abdominal pain men, vaginal bleeding, weakness, fever, dyspnea, syncope, headache, dizziness, GI bleed, back pain, seizure, CVA, palpatations, mental health, musculoskeletal)? @ -Differential Fever: Pneumonia, viral URI, endocarditis, myocarditis, pericarditis, otitis, sinusitis, peritonsillar Abscess, retropharyngeal Abscess, epiglottitis, peritonitis, appendicitis, Mikaela cystitis, diverticulitis, hepatitis, colitis, UTI, PID, TOA, pyelonephritis, prostatitis, epididymitis, meningitis, encephalitis, pulmonary embolism, CVA, thyroid storm, pancreatitis, adrenal crisis, cavernous sinus thrombosis, this is not meant to be an all-inclusive list. EKG interpreted by me (3pts min.). @ -As above X-rays interpreted by me (1pt min.). @ -Chest x-ray was interpreted by myself showed no acute abnormality. CT interpreted by me (1pt min.). @ -None done U/S interpreted by me (1pt. min.). @ -None done What testing was considered but not performed or refused? (CT, X-rays, U/S, labs)? Why? @ -None What meds were considered but not given or refused? Why? @ -None Did you discuss the management of the patient with other professionals (professionals i.e. , [employer], HEALTHCARE INSURANCE SALES AGENT, lab, RT, psych nurse, secondary social studies teacher, meat pumper, teacher, head correction officer, onsite case manager)? Give summary @ -No Was smoking cessation discussed for >3mins.? @ -No Was critical care preformed (if so, how long)? @ -No Were there social determinants of health that impacted care today? How? (Homelessness, low income, unemployed, alcoholism, drug addiction, transportation, low edu. Level, literacy, decrease access to med. care, snf, rehab)? @ -No Was there de-escalation of care discussed even if they declined (Discuss DNR or withdrawal of care, Hospice)? DNR status @ -No What co-morbidities impacted this encounter? (DM, HTN, Smoking, COPD, CAD, Cancer, CVA, ARF, Chemo, Hep., AIDS, mental health diagnosis, sleep apnea, morbid obesity)? @ -None Was patient admitted / discharged? Hospital course, mention meds given and route, prescriptions, significant lab abnormalities, going to OR and other pertinent info. @ -Patient was transferred to us from the urgent care because of tachycardia. Patient came here he had a fever of 102.5 I gave the patient Tylenol Motrin and the rate came down about 110 but she states she is out of her Ativan believe she is anxious. She was given Ativan as well. Patient denies any symptoms other than having the chills earlier and now that her fever started she no longer has the chills and she is asymptomatic. Patient oxygenates in the high 90 percentile Undiagnosed new problem with uncertain prognosis? @ -No Drug Therapy requiring intensive monitoring for toxicity (Heparin, Nitro, Insulin, Cardizem)? @ -No Were any procedures done? @ -No Diagnosis/symptom? @ -COVID-19 Acute, or Chronic, or Acute on Chronic? @ -Acute Uncomplicated (without systemic symptoms) or Complicated (systemic symptoms)? @ -Uncomplicated Side effects of treatment? @ -No Exacerbation, Progression, or Severe Exacerbation? @ -No Poses a threat to life or bodily function? How? (Chest pain, [place], [place], pneumonia, PE, COPD, DKA, ARF, appy, cholecystitis, CVA, Diverticulitis, Homicidal, Suicidal, threat to staff... and all critical care pts) @ -No Diagnosis/symptom? @ -Tachycardia Acute, or Chronic, or Acute on Chronic? @ -Acute Uncomplicated (without systemic symptoms) or Complicated (systemic symptoms)? @ -Uncomplicated Side effects of treatment? @ -none Exacerbation, Progression, or Severe Exacerbation] @ -no Poses a threat to life or bodily function? @ -no Diagnosis/symptom? @ -Anxiety Acute, or Chronic, or Acute on Chronic? @ -Acute Uncomplicated (without systemic symptoms) or Complicated (systemic symptoms)? @ -default Side effects of treatment? @ -none Exacerbation, Progression, or Severe Exacerbation] @ -no Poses a threat to life or bodily function? @ -no - Lab Data Lab Results 12/19/22 Range/Units 11:23 Group A Strep (PCR) NOT DETECTED (Not Detectd) Disposition Clinical Impression: COVID-19, Anxiety Disposition: HOME SELF-CARE Condition: Good Is patient prescribed a controlled substance at d/c from ED?: No Referrals: Alfonzo Jarrett DO [Primary Care Provider] - 1-2 days Time of Disposition: 14:02
--- NOTE | 2022-12-19 11:58 | XR ---
EXAMINATION TYPE: XR chest 2V DATE OF EXAM: 12/19/2022 COMPARISON: Chest x-ray January 20, 2018 HISTORY: Difficulty in breathing. TECHNIQUE: Frontal and lateral views of the chest are obtained. FINDINGS: There is cardiomegaly with mild central vascular congestion. No pleural effusion or pneum othorax seen. No suspicious focal consolidation. Overlying bra strap and EKG leads on current study. Cholecystectomy clips are redemonstrated. The osseous structures are intact. IMPRESSION: Cardiomegaly with suspected mild central vascular congestion. Correlate for CHF exacerba tion.
[2022-12-19 13:16] VITALS: BP 111/62; RESP 18
[2022-12-19] MEDS ORDERED: LORazepam 1 MG TAB PO STA (14:05)
[2022-12-19 14:09] VITALS: PULSE 113; TEMP 99.8
== END 2022-12-19 14:27 | disposition home or self-care (01) ==
LOC: EC 11:11
DX: U07.1 COVID-19 (principal); F41.9 Anxiety disorder, unspecified; J45.909 Unspecified asthma, uncomplicated; E78.5 Hyperlipidemia, unspecified; I10 Essential (primary) hypertension; Z79.51 Long term (current) use of inhaled steroids; Z79.899 Other long term (current) drug therapy
CPT/HCPCS: 71046; 87651; 93005; 99284

== ENCOUNTER → 2023-01-08 | Outpatient (CLI) | payer MEDICARE, BC ==
--- NOTE | 2023-01-11 08:22 | MM ---
Reason for Exam: Screening (asymptomatic). Last mammogram was performed 2 year(s) and 3 month(s) ago. Patient History: Menarche at age 13. First Full-Term at age 28. Left ovary removed at age 42. Hysterectomy at age 42. Postmenopausal. 2013, Cyst Aspiration on the Right side. Maternal cousin had breast cancer. Risk Values: Bell 5 year model risk: 1.4%. NCI Lifetime model risk: 8.9%. Prior Study Comparison: 09/02/2017 Bilateral Screening Mammogram, [facility]. 10/13/2018 Bilateral Screening Mammogram, [facility]. 10/04/2020 Bilateral Screening Mammogram, [facility]. Tissue Density: The breast tissue is heterogeneously dense. This may lower the sensitivity of mammography. Findings: Analyzed By CAD. There is no suspicious group of microcalcifications or new suspicious mass in either breast. Overall Assessment: Negative, BI-RAD 1 Management: Screening Mammogram of both breasts in 1 year. A clinical breast exam by your physician is recommended on an annual basis and results should be correlated with mammographic findings. [facility] will attempt to contact patient to return for supplemental views and ultrasound if indicated. Electronically signed and approved by: Paul Donnelly DO
== END | disposition home or self-care (01) ==
LOC: RADMAMWWP 15:04
PROVIDERS: ATTEND Family Medicine
DX: Z12.31 Encounter for screening mammogram for malignant neoplasm of breast (principal); Z78.0 Asymptomatic menopausal state; Z80.3 Family history of malignant neoplasm of breast
CPT/HCPCS: 77063; 77067

== ENCOUNTER → 2023-10-12 | Outpatient (CLI) | payer MEDICARE, BC | END | disposition home or self-care (01) | LOC: LABWHC1 15:22 | PROVIDERS: ATTEND Family Medicine | DX: Z53.9 Procedure and treatment not carried out, unspecified reason (principal) ==

== ENCOUNTER → 2023-10-13 | Outpatient (CLI) | payer MEDICARE, BC ==
[2023-10-13 11:04] LABS: Basophils # (A) 0.05 X 10*3/uL (0.00-0.10); Basophils % (A) 0.6 %; Eosinophils # (A) 0.34 X 10*3/uL (0.04-0.35); Eosinophils % (A) 3.9 %; HGB 11.8 g/dL (12.0-15.0); Lymphocytes % (A) 26.3 %; MCHC 31.1 g/dL (32.0-37.0); MCV 90.3 FL (80.0-97.0); Mean Platelet Volume 9.9 FL (9.5-12.2); Monocytes % (A) 5.7 %; NRBC Per 100 WBC 0 X 10*3/uL (0.00-0.01); Neutrophils # (A) 5.53 X 10*3/uL (1.80-7.70); Platelet Count 281 X 10*3/uL (140-440); RBC 4.21 X 10*6/uL (4.10-5.20); RDW 13.2 % (11.5-14.5); WBC 8.76 X 10*3/uL (4.50-10.00)
[2023-10-13 11:37] LABS: Chol/HDL Ratio 4.25 Ratio; LDL Cholesterol,Calculated 38.6 mg/dL (0.0-131.0)
[2023-10-13 12:04] LABS: ALT 32 U/L (8-44); AST 34 U/L (13-35); Albumin 4.3 g/dL (3.8-4.9); Albumin/Globulin Ratio 1.26 Ratio (1.60-3.17); Alkaline Phosphatase 123 U/L (41-126); BUN/Creat Ratio 29.12 Ratio (12.00-20.00); Bilirubin, Conjugated <0.20 mg/dL (0.20-0.40); Blood Urea Nitrogen 23.3 mg/dL (9.0-27.0); Calcium 10.2 mg/dL (8.7-10.3); Carbon Dioxide 28.4 mmol/L (21.6-31.8); Chloride 98 mmol/L (96-109); Globulin 3.4 g/dL (1.6-3.3); Glucose 113 mg/dL (70-110); Potassium 4.7 mmol/L (3.5-5.5); Sodium 138 mmol/L (135-145); T4, Free (Free Thyroxine) 1.05 ng/dL (0.80-1.80); Total Bilirubin <0.2 mg/dL (0.3-1.2); Total Protein 7.7 g/dL (6.2-8.2)
== END | disposition home or self-care (01) ==
LOC: LABWHC1 07:23
PROVIDERS: ATTEND Nurse Practitioner Family
DX: Z00.01 Encounter for general adult medical examination with abnormal findings (principal); I10 Essential (primary) hypertension
CPT/HCPCS: 36415; 80048; 80061; 80076; 84439; 84443; 85025

== ENCOUNTER → 2024-01-13 | Outpatient (CLI) | payer MEDICARE, BC ==
--- NOTE | 2024-01-13 11:14 | MM ---
Reason for Exam: Clinical finding. Last screening mammogram was performed 12 month(s) ago. Patient History: Menarche at age 13. First Full-Term at age 28. Left ovary removed at age 42. Hysterectomy at age 42. Postmenopausal. 2013, Cyst Aspiration on the Right side. Maternal cousin had breast cancer. Risk Values: Bell 5 year model risk: 1.4%. NCI Lifetime model risk: 8.7%. Tissue Density: There are scattered areas of fibroglandular density. Findings: Analyzed By CAD. No evidence for mass or distortion. No suspicious microcalcifications. Ultrasound of the area of concern lateral left breast. Overall Assessment: Incomplete: need additional imaging evaluation, BI-RAD 0 Management: Diagnostic Breast Ultrasound of the left breast. . Results were given to the patient verbally at the time of exam. Patient should continue monthly self-breast exams. A clinical breast exam by your physician is recommended on an annual basis. This exam should not preclude additional follow-up of suspicious palpable abnormalities. Note on Bell scores and lifetime risk: 1. A Bell score greater than 3% is considered moderate risk. If this is the case, consider specialist referral to assess eligibility for a risk reducing agent. 2. If overall lifetime risk for the development of breast cancer is 20% or higher, the patient may qualify for future screening with alternating mammogram and breast MRI. Electronically signed and approved by: Vahid Way M.D. Radiologis
--- NOTE | 2024-01-13 11:55 | USB ---
Reason for Exam: Clinical finding. Patient History: Menarche at age 13. First Full-Term at age 28. Left ovary removed at age 42. Hysterectomy at age 42. Postmenopausal. 2013, Cyst Aspiration on the Right side. Maternal cousin had breast cancer. Risk Values: Bell 5 year model risk: 1.4%. NCI Lifetime model risk: 8.7%. Technique: Method: Targeted. Prior Study Comparison: 10/13/2018 Bilateral Screening Mammogram, [facility]. 10/04/2020 Bilateral Screening Mammogram, [facility]. 01/08/2023 Bilateral MG 3D screening mammo w/cad, [facility]. Findings: The lateral section of the breast of the left breast, the axilla of the left breast and the retroareolar of the left breast were scanned. No solid or cystic masses are identified. Mildly prominent ducts. Manage clinically. Overall Assessment: Benign, BI-RAD 2 Management: Screening Mammogram of both breasts in 1 year. A clinical breast exam by your physician is recommended on an annual basis and results should be correlated with mammographic findings. This exam should not preclude additional follow-up of suspicious palpable abnormalities. Results were given to the patient verbally at the time of exam. Electronically signed and approved by: Vahid Way M.D. Radiologis
== END | disposition home or self-care (01) ==
LOC: RADMAMWWP 10:42
PROVIDERS: ATTEND Family Medicine
DX: R92.323 Mammographic fibroglandular density, bilateral breasts (principal); N64.4 Mastodynia; Z80.3 Family history of malignant neoplasm of breast; Z78.0 Asymptomatic menopausal state
CPT/HCPCS: 77066; 76642; G0279; 77062

== ENCOUNTER → 2024-05-09 | Outpatient (CLI) | payer MEDICARE, BC | LOC: CPPFTMAIN 10:57 | PROVIDERS: ATTEND Family Medicine | DX: J45.31 Mild persistent asthma with (acute) exacerbation | CPT/HCPCS: 94060; 94726; 94729 ==

== ENCOUNTER → 2025-01-02 | Outpatient (CLI) | payer MEDICARE, BC ==
[2025-01-02 14:59] LABS: HCT 39.4 % (37.2-46.3); HGB 11.9 g/dL (12.0-15.0); MCHC 30.2 g/dL (32.0-37.0); MCV 89.5 FL (80.0-97.0); Mean Platelet Volume 9.8 FL (9.5-12.2); NRBC Per 100 WBC 0 X 10*3/uL (0.00-0.01); Platelet Count 280 X 10*3/uL (140-440); RDW 13.5 % (11.5-14.5); WBC 8.76 X 10*3/uL (4.50-10.00)
[2025-01-02 15:00] LABS: Basophils # (A) 0.05 X 10*3/uL (0.00-0.10); Basophils % (A) 0.6 %; Eosinophils # (A) 0.35 X 10*3/uL (0.04-0.35); Lymphocytes # (A) 1.63 X 10*3/uL (0.90-5.00); Lymphocytes % (A) 18.6 %; Monocytes # (A) 0.43 X 10*3/uL (0.20-1.00); Monocytes % (A) 4.9 %; Neutrophils # (A) 6.27 X 10*3/uL (1.80-7.70); Neutrophils % (A) 71.6 %
[2025-01-02 15:32] LABS: ALT 35 U/L (8-44); AST 44 U/L (13-35); Albumin 4.5 g/dL (3.8-4.9); Albumin/Globulin Ratio 1.29 Ratio (1.60-3.17); Alkaline Phosphatase 113 U/L (41-126); BUN/Creat Ratio 13.62 Ratio (12.00-20.00); Bilirubin, Conjugated <0.20 mg/dL (0.20-0.40); Bilirubin,Unconjugated >0.10 mg/dL (0.20-1.00); Blood Urea Nitrogen 10.9 mg/dL (9.0-27.0); Calcium 9.9 mg/dL (8.7-10.3); Carbon Dioxide 23.4 mmol/L (21.6-31.8); Chloride 100 mmol/L (96-109); Chol/HDL Ratio 4.07 Ratio; Globulin 3.5 g/dL (1.6-3.3); Glucose 117 mg/dL (70-110); Potassium 4.7 mmol/L (3.5-5.5); Sodium 138 mmol/L (135-145); T4, Free (Free Thyroxine) 0.96 ng/dL (0.80-1.80); Total Bilirubin 0.3 mg/dL (0.3-1.2)
== END | disposition home or self-care (01) ==
LOC: LABWHC1 11:52
PROVIDERS: ATTEND Nurse Practitioner Family
DX: Z00.01 Encounter for general adult medical examination with abnormal findings (principal); I10 Essential (primary) hypertension; E66.9 Obesity, unspecified
CPT/HCPCS: 36415; 80048; 80061; 80076; 83036; 84439; 84443; 84481; 85025